=== PATIENT | male | born 1960 | race Caucasian/White ===

== ENCOUNTER 2017-06-29 12:30 | Outpatient (RCR) | payer BC | END 2017-06-30 14:10 | LOC: WSPT 12:30 | DX: G44.229 Chronic tension-type headache, not intractable (principal) ==

== ENCOUNTER → 2019-05-10 | Outpatient (CLI) | payer BC | LOC: COL.RAD 10:06 | DX: M51.16 Intervertebral disc disorders with radiculopathy, lumbar region (principal); M48.07 Spinal stenosis, lumbosacral region; M46.86 Other specified inflammatory spondylopathies, lumbar region ==